=== PATIENT | female | born 1955 | race Caucasian/White ===

== ENCOUNTER 2016-11-18 08:03 | Inpatient (IN) | payer OTHER ==
[2016-11-18] VITALS (10 sets, daily range): BP systolic 128–158; BP diastolic 78–91; PULSE 100–120; RESP 18–23; O2SAT 87–93
[~2016-11-18] VITALS: Ht 154.9 cm; Wt 57.7 kg
--- NOTE | 2016-11-18 08:25 | ED.REPORT ---
HPI-Dyspnea / Wheezing Date of Service Nov 18, 2016 ED Provider: Jacinto Alfaro DO Patient is a 61 year old female wit cerrato hx of breast cancer with a double mastectomy and lymph node removal who presents to the ED complaining of SOB onset today. Associated symptoms include cough onset 3 days ago, headache, subjective fever, and malaise. She denies vomiting, diarrhea, or any other symptoms. Nursing Notes Stated Complaint: DIFFICULTY BREATHING Chief Complaint: Respiratory Distress Nursing Notes Reviewed: Yes Allergies: Coded Allergies: No Known Allergies (Unverified , 11/18/16) General Time Seen by MD: 08:16 Chief Complaint Shortness of breath Hx Obtained From: Patient, Spouse Arrived By: Walk-in Sudden in Onset?: Yes Onset Occurred: 3 days ago Symptom Duration: Since onset Past Medical History Past Medical History Notes: Patient is FULL CODE Past Medical History Breast cancer Past Surgical History double mastectomy and lymph node removal Smoking History Unknown if Ever Smoker Social History Drug Use: THC Other Social History: Ambulatory Status Independent Review of Systems Constitutional: Reports: Fever, Malaise Respiratory: Reports: Non-productive cough Complete sys rev & neg: except as marked. GI: Denies: Diarrhea, Vomiting Neurologic: Reports: Headache Physical Exam Initial Vital Signs Vital Signs (First) Date Time Temp Pulse Resp B/P Pulse Ox O2 Delivery O2 Flow Rate FiO2 11/18/16 08:15 37.6 120 23 156/78 87 Room Air 2 Initial VS: Reviewed, Vital signs abnormal Head / Eyes: Atraumatic, Normocephalic Abdomen / GI: Soft, Non-tender Skin: Warm, Dry Neurologic: Alert, Oriented, Nonfocal Psychiatric: Mood/affect normal, Behavior normal, Normal thought content General/Constitutional: Awake, Alert, Well developed Distress / Hydration: Positive: Distress moderate Neck: Atraumatic, Full range of motion Wheezing / Retractions: Positive: Wheezing expiratory hypoxic Appears short of breath Cardiovascular: Regular rhythm, Heart sounds NL Heart Rate / Rhythm: Positive: Tachycardia Interpretation & Diagnostics Lab Results Interpretation Result Diagram: 11/18/16 0848 11/18/16 0848 Test 11/18/16 08:48 White Blood Count 8.6th/mm3 (3.8-10.1) Red Blood Count 4.59mil/mm3 (3.90-5.20) Hemoglobin 15.0g/dL (12.0-15.6) Hematocrit 44.6% (35.0-46.0) Mean Corpuscular Volume 97.2fL (81-100) Mean Corpuscular Hemoglobin 32.7pg (27.0-35.0) Mean Corpuscular Hemoglobin Concent 33.6% (32.0-37.0) Red Cell Distribution Width 12.7% (12.3-15.4) Platelet Count 239bil/L (150-400) Neutrophils (%) (Auto) 79.9% (40-74) Lymphocytes (%) (Auto) 8.4% (14-46) Monocytes (%) (Auto) 11.0% (4-12) Eosinophils (%) (Auto) 0.1% (0-5) Basophils (%) (Auto) 0.5% (0-3) Sodium Level 139mEq/L (134-144) Potassium Level 4.2mEq/L (3.5-5.2) Chloride Level 97mEq/L (97-108) Carbon Dioxide Level 24mmol/L (18-29) Blood Urea Nitrogen 10mg/dL (8-27) Creatinine 0.46mg/dL (0.57-1.00) Estimat Glomerular Filtration Rate 198mL/min (>59) Glucose Level 160mg/dL (60-99) Lactic Acid Level 1.4mmol/L (0.4-2.0) Calcium Level 10.0mg/dL (8.5-10.1) Magnesium Level 2.0mg/dL (1.6-2.6) Total Bilirubin 0.5mg/dL (0.0-1.2) Aspartate Amino Transf (AST/SGOT) 23U/L (0-50) Alanine Aminotransferase (ALT/SGPT) 13U/L (0-32) Alkaline Phosphatase 42U/L (25-165) Total Protein 8.4g/dL (6.4-8.4) Albumin 4.7g/dL (3.4-5.0) Procalcitonin 0.07ng/mL (0.00-0.08) ECG Interpretation ECG Interpretation: Sinus tachycardia with a rate of 111 LVH Long QT interval Time: 08:56 Interpreted by: ED physician X-Ray Chest Interpretation Chest Xray Interpretation: IMPRESSION: No acute disease is seen in the upright portable chest. Dictated by: Ryley Rahman M.D. on 11/18/2016 at 9:01 Approved by: Ryley Rahman M.D. on 11/18/2016 at 9:02 View: Portable, 1 view Interpretation / Wet Read by: Interpret - Radiologist CT Chest Interpretation IMPRESSION: Other than some minimal scarring changes the lungs are considered clear. No evidence for pulmonary embolus is seen. No changes to the is suspicious for metastasis is seen. 3 small nodular densities are seen in the right chest. Followup ultrasound in [address] without contrast is suggested. Dictated by: Ryley Rahman M.D. on 11/18/2016 at 10:13 Approved by: Ryley Rahman M.D. on 11/18/2016 at 10:19 Study type: CT pulm angiogram Interpretation / Wet Read by: Interpret - Radiologist Re-Eval/Medical Decision Med Decision/Clinical Course Persistent hypoxia from URI with associated wheezes. No preceding history of pulmonary dysfunction according to the patient. I suspect that this patient is not a candidate for outpatient management given the degree of hypoxia despite aggressive nebulizer treatment in the ER. Will plan to admit her, have regular scheduled nebulizers, supplemental steroids, and await clinical improvement. Re-Evaluation/Progress : Time of Eval: 10:37 Re-Evaluation/Progress Note: Rechecked pt. Discussed plan for admission. Patient understands and agrees with plan. All questions addressed at this time. Pt is FULL CODE Consultation : Referral / Consult Name: Anthony Gillette MD Consulted With: Hospitalist Call Returned at: 10:55 Commercial Account Officer: Will see patient, Agrees with eval, Agrees with plan, Accepts admit Note: Discussed pt case. Accepts admit Counseled Regarding: Diagnosis, Lab results, Need for admission Discharge & Departure Impression: Primary Impression: URI (upper respiratory infection) URI type: unspecified URI Qualified Code: J06.9 - Acute upper respiratory infection, unspecified Additional Impression: Hypoxia Disposition: ADMITTED TO HOSPITAL Discharge Condition All VS Reviewed: Yes Condition: Stable Crit Care Except Billable Proc Time Spent: 30-74 minutes Services Performed: Patient management by me, Time spent at bedside, Reviewing test results Critical Care Notes: See MDM Scribe Attestation Portions of this note were transcribed by Tiara Malave. I, Dr. Alfaro personally performed the history, physical exam and medical decision-making; I reviewed and confirmed the accuracy of the information in the transcribed note. Signed by: Tiara Malave 11/18/16, 1057 Jacinto Alfaro DO Nov 18, 2016 08:25 TIARA MALAVE Nov 18, 2016 08:32
[2016-11-18] MEDS ORDERED: 0.9% Sodium Chloride 1,000 ML IV ONE (08:32)
[2016-11-18] MEDS ORDERED: Albuterol-Ipratropium 3 mL Inhalation Solution NEB ONE (08:35)
[2016-11-18 08:59] LABS: BASOPHILS % (AUTO) 0.5 % (0-3); EOSINOPHILS % (AUTO) 0.1 % (0-5); Mean Corpuscular Hemoglobin 32.7 pg (27.0-35.0); Mean Corpuscular Volume 97.2 fL (81-100); NEUTROPHILS % (AUTO) 79.9 % (40-74); Platelet Count 239 bil/L (150-400)
--- NOTE | 2016-11-18 09:04 | DRSVH ---
PROCEDURE: X-RAY CHEST ONE VIEW, PORTABLE ([id number]) INDICATIONS: cough, hypoxia TECHNIQUE: One view of the chest was acquired. COMPARISON: None. FINDINGS: Surgical changes and devices: auto appraiser leads and oxygen tubing are present. Lungs and pleura: No pleural effusions or pneumothorax. Lungs are clear. Mediastinum: Mediastinal contours appear normal. Heart size is normal. Bones and chest wall: No suspicious bony lesions. Overlying soft tissues suggest bilateral surgery possibly mastectomy. IMPRESSION: No acute disease is seen in the upright portable chest. Dictated by: Ryley Rahman M.D. on 11/18/2016 at 9:01 Approved by: Ryley Rahman M.D. on 11/18/2016 at 9:02
--- NOTE | 2016-11-18 10:20 | DRSVH ---
PROCEDURE: CT ANGIO CHEST PULMONARY EMBOLISM ([id number]) INDICATIONS: hypoxia, breast CA, normal CXR TECHNIQUE: After the administration of intravenous contrast, 2 mm thick sections acquired from the pulmonary api jacob to the posterior costophrenic angles. 3-dimensional maximum intensity projection (MIP) coronal a nd sagittal reformats were then acquired through the thorax. For radiation dose reduction, the follo wing was used: automated exposure control, adjustment of mA and/or kV according to patient size. COMPARISON: None. FINDINGS: Image quality: Moderate, mediocre timing of contras in the central vasculature Pulmonary arteries: Pulmonary arteries are normal in size, and demonstrate no intraluminal filling d efects to suggest central pulmonary embolism. Lungs and pleura: Lungs are clear. Along the anterior upper left chest there is some minimal mild pl eural scarring and radiation fibrotic change. No pleural effusions or pneumothorax. Central and per ipheral airways are patent. Mediastinum: Heart size is normal, without pericardial effusion. No mediastinal or hilar adenopathy . Thoracic aorta is normal in caliber and enhancement. Esophagus is normal in caliber, without hiat al hernia. Bones and chest wall: No suspicious bony lesions. Ribs and thoracic spine appear intact throughout. Thyroid gland is within normal limits. No axillary or supraclavicular adenopathy. Abdomen: Visualized upper abdominal solid organs appear normal in the early arterial phase of enhanc ement. IMPRESSION: Other than some minimal scarring changes the lungs are considered clear. No evidence for pulmonary embolus is seen. No changes to the is suspicious for metastasis is seen. 3 small nodular densities are seen in the rig ht chest. Followup ultrasound in [address] without contrast is suggested. Dictated by: Ryley Rahman M.D. on 11/18/2016 at 10:13 Approved by: Ryley Rahman M.D. on 11/18/2016 at 10:19
[2016-11-18] MEDS ORDERED: MethylprednisoLONE Sodium Succinate 62.5 mg/mL 2 mL Inj IVPUSH ONE (10:35)
[2016-11-18] MEDS ORDERED: Albuterol 2.5 mg/3 mL Inhalation Solution NEB ONE (10:35)
[2016-11-18] MEDS ORDERED: Alum-Mag Hydrox-Simeth 30 mL Suspension PO PRN (11:00)
[2016-11-18] MEDS ORDERED: Ondansetron 2 mg/mL 2 mL Inj IVPUSH PRN (11:00)
--- NOTE | 2016-11-18 11:05 | ABG ---
DateTimeAnalyzed 11:00:00 -_ pH ____7.427 - 7.350 7.450 pCO2 ___38.0__ -mmHg 35.0 45.0 pO2 ___59.5__ -mmHg 69.0 116 HCO3- ___24.6__ -mmol/L 22.0 26.0 ABE ____0.9__ -mmol/L -2.0 2.0 tHb ___13.5__ -g/dL O2Hb ___89.6__ -% COHb ____1.0__ -% MetHb ____0.9__ -% sO2 ___91.3__ -% FIO2 ___21.0__ -% Drawn By jj - Date/Time Notified____ 11:05:00 -_ Notified By jj - Notified Whom dr okelley - B 761 -mmHg tO2 ___17.0__ -Vol% Raymond test _Positive -
[2016-11-18] MEDS ORDERED: SERT50TA9 PO (11:21)
[2016-11-18] MEDS ORDERED: BUPR300T52 PO (11:21)
[2016-11-18] MEDS ORDERED: ANAS1TAB7 PO (11:21)
[2016-11-18] MEDS ORDERED: CHOL100043 PO (11:22)
[2016-11-18] MEDS ORDERED: CALC600T12 PO (11:22)
--- NOTE | 2016-11-18 11:46 | NUR ---
Admission Pt arrived [facility] to Rm 3026, A/Ox3, sating 93% on 2L O2 via NC, very [place] however does read lip. Bilateral mastectomy, B/P on R side only. Pt able to transfer self from gurney to bed. Steady gait observed. Oriented to call light, BR, visiting hours, and pt guide. Call light in reach, will continue to monitor.
[2016-11-18] MEDS ORDERED: Albuterol-Ipratropium 3 mL Inhalation Solution NEB PRN (13:40)
[2016-11-18] MEDS ORDERED: Polyethylene Glycol (PEG) 17 Gm Powder PO PRN (13:40)
[2016-11-18] MEDS ORDERED: Albuterol 1.25 mg/3 mL Inhalation Solution NEB PRN (13:45)
--- NOTE | 2016-11-18 15:20 | PCM.HPMED ---
Subjective Date of Service Nov 18, 2016 Primary Provider: Admitting Physician: Anthony Gillette MD [facility] Attending Physician: Anthony Gillette MD Chief Complaint: This is a 61-year-old female who presents with dyspnea and cough. History of Present Illness: She had radiation treatment to the left chest 5 years ago at the time of a double mastectomy for left breast cancer and has had some skin espinosa chronically but had not been aware of any lung damage. She does note that she has had more than 1 upper restaurant infection for a prolonged course yearly since then. She smokes marijuana regularly but has not smoked cigarettes since college. She has never been told that she has COPD or asthma. Along with the dyspnea she has had a cough that is productive of white sputum, a warm feeling and sweating. There has been no chest pain, nausea, vomiting or abdominal pain. Her CT scan shows no pulmonary embolus on the CTA. There is no infiltrate and no visible reason for the hypoxia. In the emergency department she was noted be 87% room air, and has had improvement in her dyspnea with 2-3 L of nasal cannula oxygen subsequently. These symptoms been going on for 1 week , much worse in the last 2 days. Her medical care has been through her previous doctors down in [place]. She moved to [place] recently. Review of Systems: Positive for sweats, cough, shortness of breath and chronic hearing loss. Negative for nausea, vomiting, abdominal pain, joint pain, rash, bleeding, dysuria, seizures, headache, depression, new allergies, eye problems. Allergies Coded Allergies: No Known Allergies (Unverified , 11/18/16) Home Medications Zoloft 50 mg a day Wellbutrin ER 300 mg a day Anastrozole 1 mg a day PMH Left breast cancer treated with radiation and subsequent recurrence and double mastectomy. Postmenopausal mood disorder Denies any history of chronic lung problems, COPD, asthma. Surgical History C6-7 disc surgery Tonsillectomy Bilateral mastectomy Family History Ovarian cancer and diabetes Social History Occupation: retired insurance agents supervisor Hx Alcohol Use: Yes (wine) Alcoholic Drinks Per Day: about 10 glasses/week Hx Substance Use: Yes (marijuana last used a week ago) Smoking Status: Unknown if Ever Smoker Living Arrangement: with Family (her accompanies her today.) Additional Information Primary care physician is Gianfranco Winchester at [facility] in [place] She smokes marijuana several times a week for nausea Exam Vital Signs Vital Sign - Last Date Time Temp Pulse Resp B/P Pulse Ox O2 Delivery O2 Flow Rate FiO2 11/18/16 13:51 Supplement Oxygen 11/18/16 13:22 36.7 108 22 153/91 91 2.00 11/18/16 11:46 93 Exam She is alert and oriented 3. She is very hard of hearing. She lip reads. Pupils are equally round and reactive to light and accommodation. Extraocular muscles are intact Sclera are pink and anicteric Throat looks normal No lymph nodes are felt head, neck, supraclavicular area JVD is less than 6 cm No carotid bruits are heard Heart is regular rate and rhythm without murmur Lungs significant crackles and wheezes throughout especially on the left side. There Are Multiple Red Radiation Scars on the Anterior Aspect of the Left Chest. Abdomen is soft, bowel sounds positive, nontender, no organomegaly. Extremities have no ankle edema There is no tremor. Cranial nerves II through XII tested intact. Motor function is 5 out of 5 throughout. Balance and gait are normal. No skin rash other than the radiation espinosa on the left chest. No jaundice. Lab and Diagnostics Labs [facility] DIANN LAMAR 1955 Female DateTimeAnalyzed 11:00:00 -_ pH ____7.427 - 7.350 7.450 pCO2 ___38.0__ -mmHg 35.0 45.0 pO2 ___59.5__ -mmHg 69.0 116 HCO3- ___24.6__ -mmol/L 22.0 26.0 ABE ____0.9__ -mmol/L -2.0 2.0 tHb ___13.5__ -g/dL O2Hb ___89.6__ -% COHb ____1.0__ -% MetHb ____0.9__ -% sO2 ___91.3__ -% FIO2 ___21.0__ -% Drawn By jj - Date/Time Notified____ 11:05:00 -_ Notified By jj - Notified Whom dr okelley - B 761 -mmHg tO2 ___17.0__ -Vol% Raymond test _Positive - Result Diagram: 11/18/16 0848 11/18/16 0848 X-Rays, CTs and MRIs [facility] Diagnostic [place] [address] Patient Name: DIANN LAMAR MR#: [id number] Location: SED Ordering Phys: Jacinto Alfaro DO Date of Service: 11/18/16904 PROCEDURE: CT ANGIO CHEST PULMONARY EMBOLISM ([id number]) INDICATIONS: hypoxia, breast CA, normal CXR TECHNIQUE: After the administration of intravenous contrast, 2 mm thick sections acquired from the pulmonary apices to the posterior costophrenic angles. 3-dimensional maximum intensity projection (MIP) coronal and sagittal reformats were then acquired through the thorax. For radiation dose reduction, the following was used: automated exposure control, adjustment of mA and/or kV according to patient size. COMPARISON: None. FINDINGS: Image quality: Moderate, mediocre timing of contras in the central vasculature Pulmonary arteries: Pulmonary arteries are normal in size, and demonstrate no intraluminal filling defects to suggest central pulmonary embolism. Lungs and pleura: Lungs are clear. Along the anterior upper left chest there is some minimal mild pleural scarring and radiation fibrotic change. No pleural effusions or pneumothorax. Central and peripheral airways are patent. Mediastinum: Heart size is normal, without pericardial effusion. No mediastinal or hilar adenopathy. Thoracic aorta is normal in caliber and enhancement. Esophagus is normal in caliber, without hiatal hernia. Bones and chest wall: No suspicious bony lesions. Ribs and thoracic spine appear intact throughout. Thyroid gland is within normal limits. No axillary or supraclavicular adenopathy. Abdomen: Visualized upper abdominal solid organs appear normal in the early arterial phase of enhancement. IMPRESSION: Other than some minimal scarring changes the lungs are considered clear. No evidence for pulmonary embolus is seen. No changes to the is suspicious for metastasis is seen. 3 small nodular densities are seen in the right chest. Followup ultrasound in [address] without contrast is suggested. Dictated by: Ryley Rahman M.D. on 11/18/2016 at 10:13 Approved by: Ryley Rahman M.D. on 11/18/2016 at 10:19 [facility] [place] [address] Patient Name: DIANN LAMAR MR#: [id number] Location: SED Ordering Phys: Jaicnto Alfaro Date of Service: 11/18/16 0832 PROCEDURE: X-RAY CHEST ONE VIEW, PORTABLE ([id number]) INDICATIONS: cough, hypoxia TECHNIQUE: One view of the chest was acquired. COMPARISON: None. FINDINGS: Surgical changes and devices: blood coordinator leads and oxygen tubing are present. Lungs and pleura: No pleural effusions or pneumothorax. Lungs are clear. Mediastinum: Mediastinal contours appear normal. Heart size is normal. Bones and chest wall: No suspicious bony lesions. Overlying soft tissues suggest bilateral surgery possibly mastectomy. IMPRESSION: No acute disease is seen in the upright portable chest. Dictated by: Ryley Rahman M.D. on 11/18/2016 at 9:01 Approved by: Ryley Rahman M.D. on 11/18/2016 at 9:02 Assessment & Plan Acute respiratory failure of suspected pneumonitis/upper respiratory infection/ new onset asthma -Chest x-ray and CT scan reports are reviewed. The computer is preventing an actual review of the films. -Her ABG suggests a mixed picture of respiratory acidosis and metabolic alkalosis. -She will be treated with beta agonist therapy and IV Solu-Medrol along with oxygen. -I have told her that I would recommend a pulmonology consultation tomorrow due to the significant hypoxia and no previous diagnosis of radiation pneumonitis or chronic asthma. -No indications for antibiotics today. -A respiratory viral panel is pending -3 nodular densities are seen on the right lung on the chest CT. Follow-up CT in 3 months is recommended. 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 -Continue anastrozole. Postmenopausal mood disorder -She indicates that she takes Wellbutrin and Zoloft for menopausal symptoms that did not respond to hormones. Chronic hearing loss -She will obtain her hearing aids, but in the meantime communicates well as long as the speaker is directly in front of her vision and carefully articulates with a louder than normal voice Chronic marijuana and alcohol use -She tells me that she drinks 2 glasses of champagne or wine daily. Pain Evaluation: Adequate Pain Control Resuscitation Status: CPR: Attempt Resuscitation Anthony Gillette MD Nov 18, 2016 14:50
[2016-11-18] MEDS: MethylprednisoLONE Sodium Succinate 40 mg/mL Inj IVPUSH SCH (16:05)
[2016-11-19] VITALS (11 sets, daily range): BP systolic 149–169; BP diastolic 83–93; PULSE 79–110; RESP 18; O2SAT 93–98
[2016-11-19] MEDS: MethylprednisoLONE Sodium Succinate 40 mg/mL Inj IVPUSH SCH ×2 (00:39→08:53)
--- NOTE | 2016-11-19 02:05 | NUR ---
Ear pain Patient reported 3/10 middle ear pain around 0100, bilaterally. MD paged to change PRN Tylenol to Ibuprofen per patient request. Patient reported concern because she said she never has ear pain. Ibuprofen administered, patient appears to be asleep at this time.
[2016-11-19 06:30] LABS: BASOPHILS % (AUTO) 0.2 % (0-3); EOSINOPHILS % (AUTO) 0 % (0-5); MONOCYTES % (AUTO) 5.8 % (4-12); Mean Corpuscular Volume 98.6 fL (81-100); NEUTROPHILS % (AUTO) 84.3 % (40-74); Platelet Count 226 bil/L (150-400)
[2016-11-19 08:07] LABS: APPEARANCE,URINE CLEAR (CLEAR,HAZY); COLOR,URINE YELLOW (YELLOW); OCCULT BLOOD,URINE TRACE (NEGATIVE); UROBILINOGEN,URINE NORMAL (NORMAL)
[2016-11-19] MEDS: buPROPion XL 300 mg ER24 Tablet PO SCH (08:54)
--- NOTE | 2016-11-19 09:02 | NUR ---
Micro/tele Call from Micro, at appro 0830. (+) result Parainfluenza 3. Contact precautions in place. Call from tele monitor, HR has increased up to 140s. Pt assessed, no complains of increased pain or SOB, chest discomfort/pressure, or N/V. Pt has been up to the bathroom and walking in the room. MD made aware of above. No new orders received at this time. Call light in reach, will continue to monitor.
--- NOTE | 2016-11-19 10:53 | NUR ---
Social Work-screening/readiness for discharge: Data:EMR Reviewed. Pt is a 61 y/o female who was admitted on 11/18/16 for URI per H&P. Pt's insurance is [employer] and PCP is [facility]. EMR reviewed. SW met with pt at bedside, SW role explained. Pt is alert and oriented x3. Pt resides at home with her in [place] where she remains independent with ADLS. Pt drives and does not use any DME. 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 SW discussed DPOA/ advanced directive, pt confirms she has completed this, SW encouraged a copy to be brought in. Pt states she did not get her insurance cards to registration, SW made a copy and faxed them down to registration for pt. Pt's to provide transport home at discharge. SW provided phone number and plan on white board in room. No anticipated discharge needs. SW will continue to follow if needs arise. Assessment:Pt who is independent at baseline. Plan:Pt to discharge home when medically stable via POV. No anticipated discharge needs. SW will continue to follow if needs arise. ЕКАТЕРИНА Dee
--- NOTE | 2016-11-19 11:37 | DRSVH ---
PROCEDURE: X-RAY CHEST, TWO VIEWS ([id number]) INDICATIONS: Hypoxia TECHNIQUE: 2 views of the chest were acquired. COMPARISON: None. FINDINGS: Surgical changes and devices: Surgical clips projecting in the left and right axilla. Lungs and pleura: No pleural effusions or pneumothorax. Lungs are clear. Mild scattered atelectasis /scarring Mediastinum: Mediastinal contours are normal. Heart size is normal. Bones and chest wall: No suspicious bony abnormalities. Soft tissues appear unremarkable. IMPRESSION: No acute disease Dictated by: Levy Macdonald M.D. on 11/19/2016 at 11:35 Approved by: Levy Macdonald M.D. on 11/19/2016 at 11:35
--- NOTE | 2016-11-19 12:37 | PCM.PNMED ---
Subjective Date of Service Nov 19, 2016 Subjective Patient is feeling significantly better since her admission, her notes on this is the supplemental oxygen to notes as significantly improved her shortness of breath. She still notes some labored breathing when oxygen is removed with exertion. Denied any chest pain however has continued to experience cough but this is not productive. Denies any fever or chills at this time demonstrated no fever overnight. , Exam Vital Signs Vital Sign - Last Date Time Temp Pulse Resp B/P Pulse Ox O2 Delivery O2 Flow Rate FiO2 11/19/16 09:22 37.4 81 18 159/90 93 Nasal Cannula 2.00 11/18/16 21:04 90 Intake and Output 11/18/16 11/18/16 11/19/16 Cumulative From/Thru 14:59 22:59 06:59 11/18/16 08:15 - 11/19/16 05:59 Intake Total 1000 ml 900 ml 673 ml 2573 ml Output Total 850 ml 850 ml Balance 1000 ml 900 ml -177 ml 1723 ml Intake Oral 900 ml 673 ml 1573 ml IV Total 1000 ml 1000 ml Output Urine Total 850 ml 850 ml # Voids 2 2 General: Alert, Oriented X3, Cooperative, Mild Distress Mouth: Mucous Membr Moist/[place] Chest & Lungs: Coarse breath sounds, Other (without other adventitious breath sounds good air flow noted in all lung cobb) Cardiovascular: Regular Rate/Rhythm Extremities: No cyanosis/clubbing/edma bilat Neurological: Grossly Neurologically Intact IVs and Medications Medications Reviewed: Medications were reviewed in detail Lab and Diagnostics Result Diagram: 11/19/16 0611/19/16 06 X-Rays, CTs and MRIs [facility] Diagnostic [place] [address] Patient Name: DIANN LAMAR MR#: [id number] Location: [facility] [place] Ordering Phys: Jacinto Alfaro DO Date of Service: 11/18/16904 PROCEDURE: CT ANGIO CHEST PULMONARY EMBOLISM ([id number]) INDICATIONS: hypoxia, breast CA, normal CXR TECHNIQUE: After the administration of intravenous contrast, 2 mm thick sections acquired from the pulmonary apices to the posterior costophrenic angles. 3-dimensional maximum intensity projection (MIP) coronal and sagittal reformats were then acquired through the thorax. For radiation dose reduction, the following was used: automated exposure control, adjustment of mA and/or kV according to patient size. COMPARISON: None. FINDINGS: Image quality: Moderate, mediocre timing of contras in the central vasculature Pulmonary arteries: Pulmonary arteries are normal in size, and demonstrate no intraluminal filling defects to suggest central pulmonary embolism. Lungs and pleura: Lungs are clear. Along the anterior upper left chest there is some minimal mild pleural scarring and radiation fibrotic change. No pleural effusions or pneumothorax. Central and peripheral airways are patent. Mediastinum: Heart size is normal, without pericardial effusion. No mediastinal or hilar adenopathy. Thoracic aorta is normal in caliber and enhancement. Esophagus is normal in caliber, without hiatal hernia. Bones and chest wall: No suspicious bony lesions. Ribs and thoracic spine appear intact throughout. Thyroid gland is within normal limits. No axillary or supraclavicular adenopathy. Abdomen: Visualized upper abdominal solid organs appear normal in the early arterial phase of enhancement. IMPRESSION: Other than some minimal scarring changes the lungs are considered clear. No evidence for pulmonary embolus is seen. No changes to the is suspicious for metastasis is seen. 3 small nodular densities are seen in the right chest. Followup ultrasound in [address] without contrast is suggested. Dictated by: Ryley Rahman M.D. on 11/18/2016 at 10:13 Approved by: Ryley Rahman M.D. on 11/18/2016 at 10:19 [facility] Diagnostic [place] [address] Patient Name: DIANN LAMAR MR#: [id number] Location: [facility] [place] Ordering Phys: Jacinto Alfaro DO Date of Service: 11/18/16 0832 PROCEDURE: X-RAY CHEST ONE VIEW, PORTABLE ([id number]) INDICATIONS: cough, hypoxia TECHNIQUE: One view of the chest was acquired. COMPARISON: None. FINDINGS: Surgical changes and devices: director facilities maintenance leads and oxygen tubing are present. Lungs and pleura: No pleural effusions or pneumothorax. Lungs are clear. Mediastinum: Mediastinal contours appear normal. Heart size is normal. Bones and chest wall: No suspicious bony lesions. Overlying soft tissues suggest bilateral surgery possibly mastectomy. IMPRESSION: No acute disease is seen in the upright portable chest. Dictated by: Ryley Rahman M.D. on 11/18/2016 at 9:01 Approved by: Ryley Rahman M.D. on 11/18/2016 at 9:02 Assessment & Plan Acute respiratory failure of suspected pneumonitis/upper respiratory infection/ new onset asthma -Chest x-ray and CT scan reports are reviewed. The computer is preventing an actual review of the films. -Her ABG suggests a mixed picture of respiratory acidosis and metabolic alkalosis. -She will be treated with beta agonist therapy and IV Solu-Medrol along with oxygen. -Possibility of pulmonology consult was discussed previously, however in the setting of parainfluenza virus will be deferred at this time to observe for spontaneous improvement as this viral condition resolves. -No indications for antibiotics today as prior given its findings of parainfluenza infection. -3 nodular densities are seen on the right lung on the chest CT. Follow-up CT in 3 months is recommended, these may be reactive in the setting of viral pneumonia versus personal financial representative of recurrent malignancy. 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 -Continue anastrozole. - As noted above we will follow-up nodular densities right lung in approximately 3 months. Postmenopausal mood disorder -She indicates that she takes Wellbutrin and Zoloft for menopausal symptoms that did not respond to hormones. Chronic hearing loss -She will obtain her hearing aids, but in the meantime communicates well as long as the speaker is directly in front of her vision and carefully articulates with a louder than normal voice Chronic marijuana and alcohol use - Endorses use of both substances but states it does not have negative impact on life, no desire to quit at this time. Resuscitation Status: CPR: Attempt Resuscitation Time spent 30 minutes Nolan Hein DO Nov 19, 2016 12:37
[2016-11-19] MEDS: predniSONE 20 mg Tablet PO SCH (19:59)
[2016-11-20] VITALS (10 sets, daily range): BP systolic 148–159; BP diastolic 82–95; PULSE 71–94; RESP 16–20; O2SAT 92–98
[2016-11-20 06:44] LABS: BASOPHILS % (AUTO) 0.4 % (0-3); EOSINOPHILS % (AUTO) 0 % (0-5); MONOCYTES % (AUTO) 7.8 % (4-12); Mean Corpuscular Hemoglobin 32.2 pg (27.0-35.0); Mean Corpuscular Volume 97.8 fL (81-100); NEUTROPHILS % (AUTO) 70.8 % (40-74); Platelet Count 251 bil/L (150-400)
--- NOTE | 2016-11-20 08:39 | PCM.PNMED ---
Subjective Date of Service Nov 20, 2016 Subjective Pt notes feeling slightly better but still requiring oxygen for adequate oxygenation. She also notes a tightness in her chest, and states she feels like "there is just a bunch of crud in there i wish i could cough out, but it doesn' t come". Overall she is still felling weaker than baseline, but able to move around more without shortness of breath, however still requires oxygen at these times. Denies fever, chills. Has not been utilizing nebulizer treatments. Exam Vital Signs Vital Sign - Last Date Time Temp Pulse Resp B/P Pulse Ox O2 Delivery O2 Flow Rate FiO2 11/20/16 04:54 36.9 85 18 152/82 98 Nasal Cannula 1.50 11/19/16 19:47 94 Intake and Output 11/19/16 11/19/16 11/20/16 Cumulative From/Thru 15:00 23:00 07:00 11/18/16 08:15 - 11/20/16 05:54 Intake Total 1200 ml 250 ml 4023 ml Output Total 700 ml 750 ml 2300 ml Balance 500 ml -500 ml 1723 ml Intake Oral 1200 ml 250 ml 3023 ml IV Total 1000 ml Output Urine Total 700 ml 750 ml 2300 ml # Voids 2 # Bowel Movements 2 2 Exam General: Alert, Oriented X3, Cooperative, Mild Distress Mouth: Mucous Membranes Moist/[place] Chest & Lungs: Coarse breath sounds diffusely with expiratory wheezing. NO consolidation or diminished airflow appreciated. Cardiovascular: Regular Rate/Rhythm Extremities: No cyanosis/clubbing/edema bilat Neurological: Grossly Neurologically Intact IVs and Medications Medications Reviewed: Medications were reviewed in detail Lab and Diagnostics Result Diagram: 11/20/1662411/20/16624 X-Rays, CTs and MRIs [facility] Diagnostic [place] [address] Patient Name: DIANN LAMAR MR#: [id number] [place] [facility] [place]ing Phys: Jacinto Alfaro DO Date of Service: 11/18/16904 PROCEDURE: CT ANGIO CHEST PULMONARY EMBOLISM ([id number]) INDICATIONS: hypoxia, breast CA, normal CXR TECHNIQUE: After the administration of intravenous contrast, 2 mm thick sections acquired from the pulmonary apices to the posterior costophrenic angles. 3-dimensional maximum intensity projection (MIP) coronal and sagittal reformats were then acquired through the thorax. For radiation dose reduction, the following was used: automated exposure control, adjustment of mA and/or kV according to patient size. COMPARISON: None. FINDINGS: Image quality: Moderate, mediocre timing of contras in the central vasculature Pulmonary arteries: Pulmonary arteries are normal in size, and demonstrate no intraluminal filling defects to suggest central pulmonary embolism. Lungs and pleura: Lungs are clear. Along the anterior upper left chest there is some minimal mild pleural scarring and radiation fibrotic change. No pleural effusions or pneumothorax. Central and peripheral airways are patent. Mediastinum: Heart size is normal, without pericardial effusion. No mediastinal or hilar adenopathy. Thoracic aorta is normal in caliber and enhancement. Esophagus is normal in caliber, without hiatal hernia. Bones and chest wall: No suspicious bony lesions. Ribs and thoracic spine appear intact throughout. Thyroid gland is within normal limits. No axillary or supraclavicular adenopathy. Abdomen: Visualized upper abdominal solid organs appear normal in the early arterial phase of enhancement. IMPRESSION: Other than some minimal scarring changes the lungs are considered clear. No evidence for pulmonary embolus is seen. No changes to the is suspicious for metastasis is seen. 3 small nodular densities are seen in the right chest. Followup ultrasound in [address] without contrast is suggested. Dictated by: Ryley Rahman M.D. on 11/18/2016 at 10:13 Approved by: Ryley Rahman M.D. on 11/18/2016 at 10:19 [facility] Diagnostic [place] [address] Patient Name: DIANN LAMAR MR#: [id number] [place] [facility] [place] Ordering Phys: Jacinto Alfaro DO Date of Service: 11/18/16 0832 PROCEDURE: X-RAY CHEST ONE VIEW, PORTABLE ([id number]) INDICATIONS: cough, hypoxia TECHNIQUE: One view of the chest was acquired. COMPARISON: None. FINDINGS: Surgical changes and devices: green inspector leads and oxygen tubing are present. Lungs and pleura: No pleural effusions or pneumothorax. Lungs are clear. Mediastinum: Mediastinal contours appear normal. Heart size is normal. Bones and chest wall: No suspicious bony lesions. Overlying soft tissues suggest bilateral surgery possibly mastectomy. IMPRESSION: No acute disease is seen in the upright portable chest. Dictated by: Ryley Rahman M.D. on 11/18/2016 at 9:01 Approved by: Ryley Rahman M.D. on 11/18/2016 at 9:02 Assessment & Plan Acute respiratory failure of suspected pneumonitis/upper respiratory infection/ new onset asthma -Chest x-ray and CT scan reports are reviewed. The computer is preventing an actual review of the films. -Her ABG suggests a mixed picture of respiratory acidosis and metabolic alkalosis. -Initially treated with beta agonist therapy and IV Solu-Medrol along with oxygen. -Possibility of pulmonology consult was discussed previously, however in the setting of parainfluenza virus will be deferred at this time to observe for spontaneous improvement as this viral condition resolves. -No indications for antibiotics today as prior given its findings of parainfluenza infection. -3 nodular densities are seen on the right lung on the chest CT. Follow-up CT in 3 months is recommended, these may be reactive in the setting of viral pneumonia versus videotape sales representative of recurrent malignancy. - Transitioned to oral prednisone in addition to adding standing neb treatments while awake given infrequent utlization prn even when they may be beneficial. 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 -Continue anastrozole. - As noted above we will follow-up nodular densities right lung in approximately 3 months. Postmenopausal mood disorder -She indicates that she takes Wellbutrin and Zoloft for menopausal symptoms that did not respond to hormones. Chronic hearing loss -She will obtain her hearing aids, but in the meantime communicates well as long as the speaker is directly in front of her vision and carefully articulates with a louder than normal voice Chronic marijuana and alcohol use - Endorses use of both substances but states it does not have negative impact on life, no desire to quit at this time. Pain Evaluation: Adequate Pain Control Resuscitation Status: CPR: Attempt Resuscitation Time spent 25 minutes Nolan Hein DO Nov 20, 2016 08:39
[2016-11-20] MEDS: predniSONE 20 mg Tablet PO SCH ×2 (08:55→20:59)
[2016-11-20] MEDS: buPROPion XL 300 mg ER24 Tablet PO SCH (08:55)
[2016-11-20] MEDS: Albuterol-Ipratropium 3 mL Inhalation Solution NEB SCH ×3 (11:00→21:04)
--- NOTE | 2016-11-20 15:30 | NUR ---
Titrated to room air Pt. on 1 l NC this morning. Titrated down to RA with continuous pulse ox on. Pt. saturating at 91-94%. Tolerating this well and denies SOB. Will continue to monitor.
--- NOTE | 2016-11-21 04:07 | NUR ---
PT ACTIVITY Pt has been up in room, independent, tolerates activity well. Pt has denied any dyspnea. Pt denies pain or any other discomforts. Continue to monitor. Call light in reach. Intentional rounding.
[2016-11-21 05:05] VITALS: BP 166/74; PULSE 72; RESP 16; O2SAT 96
[2016-11-21] MEDS: Albuterol-Ipratropium 3 mL Inhalation Solution NEB SCH (06:07)
[2016-11-21 06:08] VITALS: PULSE 94; RESP 16; O2SAT 91
--- NOTE | 2016-11-21 07:55 | PCM.DC.MED ---
Discharge Summary Date of Service Nov 21, 2016 Dates of Hospitalization Date of Hospital Admission Nov 18, 2016 at 11:02 Date of Discharge: Nov 21, 2016 Providers: Admitting Physician: Anthony Gillette MD [facility]ician: Anthony Gillette MD Diagnosis at Time of Discharge Diagnosis at Time of Discharge Acute respiratory failure secondary to viral lung infection (Parainfuenza 3 virus) Lung nodules History of breast cancer Postmenopausal mood disorder Chronic hearing loss Procedures XRay, CTs & MRIs [facility] [place] [address] Patient Name: DIANN LAMAR MR#: [id number] [place] [facility] [place] Phys: Jacinto Alfaro DO Date of Service: 11/18/16904 PROCEDURE: CT ANGIO CHEST PULMONARY EMBOLISM ([id number]) INDICATIONS: hypoxia, breast CA, normal CXR TECHNIQUE: After the administration of intravenous contrast, 2 mm thick sections acquired from the pulmonary apices to the posterior costophrenic angles. 3-dimensional maximum intensity projection (MIP) coronal and sagittal reformats were then acquired through the thorax. For radiation dose reduction, the following was used: automated exposure control, adjustment of mA and/or kV according to patient size. COMPARISON: None. FINDINGS: Image quality: Moderate, mediocre timing of contras in the central vasculature Pulmonary arteries: Pulmonary arteries are normal in size, and demonstrate no intraluminal filling defects to suggest central pulmonary embolism. Lungs and pleura: Lungs are clear. Along the anterior upper left chest there is some minimal mild pleural scarring and radiation fibrotic change. No pleural effusions or pneumothorax. Central and peripheral airways are patent. Mediastinum: Heart size is normal, without pericardial effusion. No mediastinal or hilar adenopathy. Thoracic aorta is normal in caliber and enhancement. Esophagus is normal in caliber, without hiatal hernia. Bones and chest wall: No suspicious bony lesions. Ribs and thoracic spine appear intact throughout. Thyroid gland is within normal limits. No axillary or supraclavicular adenopathy. Abdomen: Visualized upper abdominal solid organs appear normal in the early arterial phase of enhancement. IMPRESSION: Other than some minimal scarring changes the lungs are considered clear. No evidence for pulmonary embolus is seen. No changes to the is suspicious for metastasis is seen. 3 small nodular densities are seen in the right chest. Followup ultrasound in [address] without contrast is suggested. Dictated by: Ryley Rahman M.D. on 11/18/2016 at 10:13 Approved by: Ryley Rahman M.D. on 11/18/2016 at 10:19 [facility] Diagnostic [place] [address] Patient Name: DIANN LAMAR MR#: [id number] [place] [facility] [place]ing Phys: Jacinto Alfaro DO Date of Service: 11/18/16 0832 PROCEDURE: X-RAY CHEST ONE VIEW, PORTABLE ([id number]) INDICATIONS: cough, hypoxia TECHNIQUE: One view of the chest was acquired. COMPARISON: None. FINDINGS: Surgical changes and devices: ekg monitor leads and oxygen tubing are present. Lungs and pleura: No pleural effusions or pneumothorax. Lungs are clear. Mediastinum: Mediastinal contours appear normal. Heart size is normal. Bones and chest wall: No suspicious bony lesions. Overlying soft tissues suggest bilateral surgery possibly mastectomy. IMPRESSION: No acute disease is seen in the upright portable chest. Dictated by: Ryley Rahman M.D. on 11/18/2016 at 9:01 Approved by: Ryley Rahman M.D. on 11/18/2016 at 9:02 Brief History As per HPI by admitting physician, "She had radiation treatment to the left chest 5 years ago at the time of a double mastectomy for left breast cancer and has had some skin espinosa chronically but had not been aware of any lung damage. She does note that she has had more than 1 upper restaurant infection for a prolonged course yearly since then. She smokes marijuana regularly but has not smoked cigarettes since college. She has never been told that she has COPD or asthma. Along with the dyspnea she has had a cough that is productive of white sputum, a warm feeling and sweating. There has been no chest pain, nausea, vomiting or abdominal pain. Her CT scan shows no pulmonary embolus on the CTA. There is no infiltrate and no visible reason for the hypoxia. In the emergency department she was noted be 87% room air, and has had improvement in her dyspnea with 2-3 L of nasal cannula oxygen subsequently. These symptoms been going on for 1 week, much worse in the last 2 days. Her medical care has been through her previous doctors down in [place]. She moved to [place] recently." Hospital Course Acute respiratory failure of suspected pneumonitis/upper respiratory infection/ new onset asthma - No evidence of bacterial type infection was noted, viral PCR demonstrated parainfluenza 3 virus -Initially treated with beta agonist therapy and IV Solu-Medrol along with oxygen, which pt benefitted from, but took a few days for significant reduction in wheezing and to stabilized on room air. -Possibility of pulmonology consult was discussed previously, however in the setting of parainfluenza virus will be deferred and pt. recovered well. - Pt was transitioned to oral prednisone and demonstrated continued improvement. DC'd with 3 additional days Prednisone 40mg PO daily in addition to albuterol HFA PRN. Lung nodules (incidental finding) - 3 nodular densities were seen on the right lung on the chest CT. Follow-up CT in 3 months is recommended, these may be reactive in the setting of viral pneumonia versus abrasives sales representative of recurrent malignancy. 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 -Continue anastrozole. - As noted above we will follow-up nodular densities right lung in approximately 3 months. Postmenopausal mood disorder -She indicates that she takes Wellbutrin and Zoloft for menopausal symptoms that did not respond to hormones. Chronic hearing loss Chronic marijuana and alcohol use - Endorses use of both substances but states it does not have negative impact on life, no desire to quit at this time. Exam Vital Signs (Last) Date Time Temp Pulse Resp B/P Pulse Ox O2 Delivery O2 Flow Rate FiO2 11/21/16 06:08 94 16 91 Room Air 11/21/16 05:05 36.8 166/74 11/20/16 12:42 1.50 93 Exam General: Alert, Oriented X3, Cooperative, No acute Distress Mouth: Mucous Membranes Moist/[place] Chest & Lungs: Significantly impromved expiratory wheezing, only trace at this time, CTA B/L. Cardiovascular: Regular Rate/Rhythm Extremities: No cyanosis/clubbing/edema bilat Neurological: Grossly Neurologically Intact Test 11/18/16 08:48 11/19/16 06:01 11/19/16 07:40 11/20/16 06:25 Hold Blue Top Tube Received (Received) Lactic Acid Level 1.4mmol/L (0.4-2.0) Magnesium Level 2.0mg/dL (1.6-2.6) Procalcitonin 0.07ng/mL (0.00-0.08) Hold Red Top Tube Received (Received) Total Bilirubin 0.2mg/dL (0.0-1.2) Aspartate Amino Transf (AST/SGOT) 19U/L (0-50) Alanine Aminotransferase (ALT/SGPT) 11U/L (0-32) Alkaline Phosphatase 34U/L (25-165) Total Protein 7.0g/dL (6.4-8.4) Albumin 4.3g/dL (3.4-5.0) Urine Color Yellow (YELLOW) Urine Appearance Clear (CLEAR,HAZY) Urine pH 6.0 (5.0-8.0) Urine Specific [place] 1.015 (1.003-1.035) Urine Protein Negativemg/dL (NEG,TRACE) Urine Glucose (UA) Negativemg/dL (NEGATIVE) Urine Ketones Negativemg/dL (NEGATIVE) Urine Occult Blood Trace (NEGATIVE) Urine Nitrite Negative (NEGATIVE) Urine Bilirubin Negative (NEGATIVE) Urine Urobilinogen Normalmg/dL (NORMAL) Urine Leukocyte Esterase Negative (NEGATIVE) Urine RBC 3-10/hpf (0-2) Urine WBC 0-5/hpf (0-5) Urine Epithelial Cells Few/hpf (NONE-MOD) Urine Crystals None seen (NONE SEEN) Urine Bacteria None/hpf (NONE-FEW) Urine Hyaline Casts None/lpf (NONE) Urine Granular Casts None seen (NONE SEEN) Urine Waxy Casts None seen (NONE SEEN) Urine Red Blood Cell Casts None seen (NONE SEEN) Urine White Blood Cell Casts None seen (NONE SEEN) Urine Mucus None seen (None Seen) Urine Trichomonas None seen (NONE SEEN) Urine Yeast None (NONE SEEN) Urinalysis Comment None Urine Culture Reflexed Not indicated White Blood Count 10.9th/mm3 (3.8-10.1) Red Blood Count 4.16mil/mm3 (3.90-5.20) Hemoglobin 13.4g/dL (12.0-15.6) Hematocrit 40.7% (35.0-46.0) Mean Corpuscular Volume 97.8fL (81-100) Mean Corpuscular Hemoglobin 32.2pg (27.0-35.0) Mean Corpuscular Hemoglobin Concent 32.9% (32.0-37.0) Red Cell Distribution Width 12.5% (12.3-15.4) Platelet Count 251bil/L (150-400) Neutrophils (%) (Auto) 70.8% (40-74) Lymphocytes (%) (Auto) 20.7% (14-46) Monocytes (%) (Auto) 7.8% (4-12) Eosinophils (%) (Auto) 0% (0-5) Basophils (%) (Auto) 0.4% (0-3) Sodium Level 143mEq/L (134-144) Potassium Level 4.5mEq/L (3.5-5.2) Chloride Level 102mEq/L (97-108) Carbon Dioxide Level 27mmol/L (18-29) Blood Urea Nitrogen 10mg/dL (8-27) Creatinine 0.49mg/dL (0.57-1.00) Estimat Glomerular Filtration Rate 185mL/min (>59) Glucose Level 112mg/dL (60-99) Calcium Level 9.5mg/dL (8.5-10.1) Discharge Medications Discharge Medications Albuterol HFA (Proair HFA) 8.5 Gm Hfa.aer.ad 2 PUFFS INHALATION Q4H Prescribed by: NOLAN HEIN DO Anastrozole (Anastrozole) 1 Mg Tablet 1 MG PO DAILY (Reported) Bupropion ER (Bupropion ER) 300 Mg Tab.er.24h 300 MG PO DAILY (Reported) Cholecalciferol (Vitamin D3) (Vitamin D) 1,000 Unit Tablet 1,000 UNIT PO DAILY ( Reported) Prednisone (Deltasone) 20 Mg Tablet 40 MG PO DAILY Prescribed by: NOLAN HEIN DO Sertraline HCl (Sertraline) 50 Mg Tablet 50 MG PO DAILY (Reported) Miscellaneous Medications Calcium Carbonate (Calcium) 600 Mg Tablet Unknown Dose PO (Reported) Followup Plan Disposition: Home in stable condition Discharge Diet: No restrictions Discharge Activity: No restrictions Follow-up Provider: MARKOS JERONIMO [facility] Follow-up with PCP in: 2 weeks Time spent 40 minutes Nolan Hein DO Nov 21, 2016 07:55
[2016-11-21] MEDS ORDERED: ALBU8.5H2 INHALATION (08:00)
[2016-11-21] MEDS ORDERED: PRED-508 PO (08:00)
--- NOTE | 2016-11-21 08:02 | PCM.DIMED ---
Discharge Instructions Date of Service Nov 21, 2016 Dates of Hospitalization Nov 18, 2016 at 11:02 Discharge Diagnosis Discharge Diagnosis Acute respiratory failure secondary to viral lung infection (Parainfuenza 3 virus) Lung nodules History of breast cancer Postmenopausal mood disorder Chronic hearing loss Diet Discharge Diet: No restrictions Activity Discharge Activity: No restrictions Call your provider Call your provider for: Fever or Chills, Shortness of breath Patient Instructions Patient Instructions 1. Continue Prednisone for an additional 3 days, only once daily in the morning starting tomorrow. May use Albuterol inhaler when needed for shortness of breath , wheezing, or cough 2. There were 3 lung nodules noted incidentally on CT of your lungs. These may represent lymph nodes reacting to infection, but follow up is recommended in 3 months to ensure they resolve. Follow-up Provider: MARKOS JERONIMO CLIN Follow-up with PCP in: 2 weeks Nolan Hein DO Nov 21, 2016 08:02
[2016-11-21] MEDS: predniSONE 20 mg Tablet PO SCH (08:48)
[2016-11-21] MEDS: buPROPion XL 300 mg ER24 Tablet PO SCH (08:48)
--- NOTE | 2016-11-21 08:54 | NUR ---
Social Work-discharge: Data:EMR Reviewed. Pt is on day 3 of hospitalization for URI per H&P. Pt is medically stable for discharge today. Pt has been up independent in her room. No discharge needs identified. All updated and agreeable to plan. Assessment:Pt who is independent at baseline. Plan:Pt to discharge home today via POV. No discharge needs identified. All updated and agreeable to plan. ЕКАТЕРИНА Dee
[2016-11-21 09:35] VITALS: BP 168/82; PULSE 90; RESP 18; O2SAT 95
--- NOTE | 2016-11-21 10:41 | NUR ---
Discharge Pt d/c home with , via wc by an aide. VSS-although BP a little high. Pt states this is "normal" when in hospital. aware. Pt states to check in with PCP and re-evaluate BP meds. Discharge info discussed with pt, pt denied having questions, was very anxious to leave. All personal belongings left with pt.
== END 2016-11-21 10:45 | disposition home or self-care (01) | DRG 189 ==
LOC: SED 08:03 → MPC 11:02
PROVIDERS: ADMIT Family Medicine; ATTEND Family Medicine
PROC: 4A033R1 Measurement of Arterial Saturation, Peripheral, Percutaneous Approach (ICD-10-PCS; principal; 2016-11-18)
DX: J96.01 Acute respiratory failure with hypoxia (principal); E87.4 Mixed disorder of acid-base balance; J06.9 Acute upper respiratory infection, unspecified; B34.8 Other viral infections of unspecified site; R91.8 Other nonspecific abnormal finding of lung field; Z85.3 Personal history of malignant neoplasm of breast; N95.1 Menopausal and female climacteric states